=== PATIENT | male | born 1980 | race African-American/Black ===

== ENCOUNTER 2017-03-10 14:06 | Emergency (ER) | payer BC ==
[~2017-03-10] VITALS: Ht 177.8 cm; Wt 85.0 kg
[2017-03-10 14:12] VITALS: BP 147/94; PULSE 60; RESP 16; TEMP 97.9; O2SAT 100
[2017-03-10] MEDS ORDERED: IBUP-232 PO ×2 (15:12→15:23)
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
== END 2017-03-10 15:39 | disposition home or self-care (01) ==
LOC: PHEFT 14:06
DX: S10.93XA Contusion of unspecified part of neck, initial encounter (principal); W50.0XXA Accidental hit or strike by another person, initial encounter
CPT/HCPCS: 99283